=== PATIENT | female | born 1955 | race Caucasian/White ===

== ENCOUNTER → 2020-07-14 10:06 | Outpatient (CLI) | payer MEDICARE, SELFPAY ==
--- NOTE | 2020-07-14 10:23 | DI.RAD.S_ITS ---
PROCEDURE: XR LUMBAR SPINE MIN 4V INDICATIONS: BACK PAIN TECHNIQUE: 5 views of the lumbar spine were acquired, including bilateral oblique views. COMPARISON: Outside Facility, RG, XR L-SPINE 2-3V, 12/04/2018, 13:46. FINDINGS: Bones: No fracture . Grade 2 anterolisthesis of L4 on L5. Multilevel degenerative endplate sclerosis and spurring. Diffuse facet arthropathy. Levoscoliosis. Diffuse moderate disc space narrowing throughout the lumbar spine. Soft tissues: IVC filter. Oblique images: No pars defects. IMPRESSION: Multilevel lumbar spondylosis and facet arthropathy Grade 2 anterolisthesis of L4 on L5. This has progressed since 12/04/18 Levoscoliosis Dictated by: Teo Bonilla M.D. on 07/14/2020 at 10:57 Approved by: Teo Bonilla M.D. on 07/14/2020 at 11:00
== END ==
PROVIDERS: PCP Family Medicine; Referring Provider Physical Medicine & Rehabilitation; Visit Provider Physical Medicine & Rehabilitation
DX: M54.9 Dorsalgia, unspecified (principal); M47.816 Spondylosis without myelopathy or radiculopathy, lumbar region; M41.86 Other forms of scoliosis, lumbar region; M43.16 Spondylolisthesis, lumbar region; R26.81 Unsteadiness on feet; M06.00 Rheumatoid arthritis without rheumatoid factor, unspecified site; Z86.711 Personal history of pulmonary embolism; Z96.651 Presence of right artificial knee joint; Z96.659 Presence of unspecified artificial knee joint
CPT/HCPCS: 72110; 99214